=== PATIENT | female | born 1990 | race Caucasian/White ===

== ENCOUNTER 2017-10-08 09:21 | Emergency (ER) | payer MEDICAID, OTHER ==
[~2017-10-08] VITALS: Ht 175.3 cm; Wt 86.2 kg
[2017-10-08 14:00] VITALS: BP 137/83
== END 2017-10-08 14:12 | disposition home or self-care (01) ==
LOC: ER 09:21 → EDBD 09:21 → ER 14:12
DX: O9A.212 Injury, poisoning and certain other consequences of external causes complicating pregnancy, second trimester (principal); S09.90XA Unspecified injury of head, initial encounter; O99.332 Smoking (tobacco) complicating pregnancy, second trimester; F17.210 Nicotine dependence, cigarettes, uncomplicated; Z3A.19 19 weeks gestation of pregnancy; W19.XXXA Unspecified fall, initial encounter; Y93.89 Activity, other specified; Y92.89 Other specified places as the place of occurrence of the external cause; Y99.8 Other external cause status
CPT/HCPCS: 36415; 76805; 76830; 84702

== ENCOUNTER 2017-11-01 11:23 | Inpatient (IN) | payer MEDICAID ==
[~2017-11-01] VITALS: Ht 175.3 cm; Wt 85.5 kg
[2017-11-01] MEDS ORDERED: LACT. RINGERS/OXYTOCIN 20UNITS 500 ML IV ONE (11:55)
[2017-11-01] MEDS ORDERED: METHYLERGONOVINE MALEATE 0.2 MG/ML AMP IM ONE (12:00)
[2017-11-01] MEDS ORDERED: ACETAMINOPHEN 325 MG TAB PO PRN (12:00)
[2017-11-01] MEDS ORDERED: CARBOPROST TROMETHAMINE 250 MCG/1ML VIAL IM PRN (12:00)
[2017-11-01 12:04] LABS: Urine WBC None Seen /hpf (0 - 5)
[2017-11-01 12:27] LABS: Basophils # (auto) 0 uL; Basophils % (auto) 0.3 % (0.0-2.0); Eosinophils # (auto) 0 uL; Eosinophils % (auto) 0.3 % (0.0-7.0); Hematocrit 35.2 % (36.0-46.0); Hemoglobin 12.2 g/dL (12.2-16.2); Lymphocytes # (auto) 1.4 uL; Lymphocytes % (auto) 10.7 % (10.0-50.0); Mean Corpuscular Hemoglobin 33.9 pg (28.0-32.0); Mean Corpuscular Hgb Conc. 34.5 g/dL (32.0-36.0); Mean Corpuscular Volume 98.3 fL (80.0-100.0); Monocytes # (auto) 0.9 uL; Monocytes % (auto) 6.7 % (0.0-12.0); Neutrophils # (auto) 10.4 uL; Nucleated Red Blood Cells % 0.1 %; Platelet Count (auto) 208 10^3/uL (140-450); Red Blood Cells 3.58 10^6/uL (4.0-5.20); Red Cell Distribution Width 12.8 % (11.8-14.3); White Blood Cell 12.7 10^3/uL (4.4-10.8)
[2017-11-01 12:33] LABS: Amphetamine Screen, Urine NEGATIVE (NEGATIVE); Barbiturate Scree,Urine NEGATIVE (NEGATIVE); Benzodiazephine Screen, Urine NEGATIVE (NEGATIVE); Cannabinoid Screen, Urine POSITIVE (NEGATIVE); Cocaine Screen, Urine NEGATIVE (NEGATIVE); Opiate Scree,Urine NEGATIVE (NEGATIVE); Phencyclidine Screen, Urine NEGATIVE (NEGATIVE)
[2017-11-01 12:38] LABS: Urine Bacteria NONE SEEN /hpf (None Seen); Urine Blood 1+ /uL (Negative); Urine Mucus FEW (None Seen); Urine Specific Gravity 1.021 (1.001-1.035)
[2017-11-01 12:41] LABS: INR 0.99 (0.9-1.15); Partial Thromboplastin Time 28.6 sec (22.64-33.71); Prothrombin Time 10.8 sec (9.37-12.3)
[2017-11-01 12:49] LABS: BUN/Creatinine Ratio 14.9; Potassium 3.7 mmol/L (3.5-5.1)
[2017-11-01] MEDS: IBUPROFEN 600 MG TAB PO PRN ×2 (12:51→19:06)
[2017-11-01 12:52] LABS: Bilirubin, Total 0.4 mg/dL (0.2-1.0); Total Protein 6.6 g/dL (6.4-8.2)
[2017-11-01] MEDS: HYDROcodone-ACET 5/325MG TAB PO PRN ×3 (15:04→21:04)
[2017-11-01 15:52] VITALS: BP 135/84
[2017-11-01 16:07] VITALS: BP 135/85
[2017-11-01 19:00] VITALS: BP 119/81
[2017-11-01 21:00] VITALS: BP 138/85
[2017-11-01] MEDS ORDERED: FOLI1TAB6 PO (21:24)
[2017-11-01] MEDS ORDERED: LEVE500T22 PO (21:24)
[2017-11-01] MEDS ORDERED: PYRI1TAB10 PO (21:24)
[2017-11-01] MEDS ORDERED: TERB250T37 PO (21:24)
[2017-11-01] MEDS ORDERED: PRENCAP11 PO (21:24)
[2017-11-01 22:01] VITALS: BP 138/85
[2017-11-01 22:42] VITALS: BP 138/85
[2017-11-01] MEDS ORDERED: LEVETIRACETAM 500 MG TAB PO ONE (23:00)
[2017-11-02] MEDS: HYDROcodone-ACET 5/325MG TAB PO PRN ×3 (02:56→15:26)
[2017-11-02 05:18] VITALS: BP 106/69
[2017-11-02 08:20] VITALS: BP 122/72
[2017-11-02] MEDS ORDERED: SODIUM CHLORIDE 0.9% 1,000 ML IV SCH (09:00)
[2017-11-02] MEDS ORDERED: ceFAZolin 1GM/50ML 50 ML IV SCH (09:00)
[2017-11-02] MEDS ORDERED: LEVETIRACETAM 500 MG TAB PO SCH (10:00)
[2017-11-02 10:16] LABS: Basophils # (auto) 0 uL; Basophils % (auto) 0.2 % (0.0-2.0); Eosinophils # (auto) 0.1 uL; Eosinophils % (auto) 0.7 % (0.0-7.0); Hematocrit 34.4 % (36.0-46.0); Hemoglobin 11.9 g/dL (12.2-16.2); Lymphocytes # (auto) 1.3 uL; Mean Corpuscular Hemoglobin 34.2 pg (28.0-32.0); Mean Corpuscular Hgb Conc. 34.6 g/dL (32.0-36.0); Mean Corpuscular Volume 98.7 fL (80.0-100.0); Monocytes # (auto) 0.6 uL; Monocytes % (auto) 5.7 % (0.0-12.0); Neutrophils % (auto) 80.4 % (37.0-80.0); Platelet Count (auto) 173 10^3/uL (140-450); Red Blood Cells 3.49 10^6/uL (4.0-5.20)
[2017-11-02 12:44] VITALS: BP 112/70
[2017-11-02 14:34] LABS: Urine Bacteria FEW /hpf (None Seen); Urine Blood 3+ /uL (Negative); Urine Specific Gravity 1.005 (1.001-1.035); Urine WBC 58 /hpf (0 - 5)
[2017-11-02 15:00] VITALS: BP 112/70
[2017-11-02 17:00] VITALS: BP 132/83
[2017-11-05 03:07] LABS: RPR Non Reactive (Non Reactive)
[2017-11-05 10:08] LABS: Rubella Antibodies, IgG 4.67 index (Immune >0.99)
== END 2017-11-02 16:30 | disposition home or self-care (01) | DRG 560 ==
LOC: LDRP 11:23 → OBSVTOIN 11:23 → UNDOADMOB 11:25 → LDRP 11:25 → WEST WING 20:05
PROVIDERS: ADMIT Obstetrics & Gynecology; ATTEND Obstetrics & Gynecology
PROC: 10E0XZZ Delivery of Products of Conception, External Approach (ICD-10-PCS; principal; 2017-11-01)
DX: O62.3 Precipitate labor (principal); O60.12X0 Preterm labor second trimester with preterm delivery second trimester, not applicable or unspecified; O36.4XX0 Maternal care for intrauterine death, not applicable or unspecified; Z3A.23 23 weeks gestation of pregnancy; Z86.73 Personal history of transient ischemic attack (TIA), and cerebral infarction without residual deficits; O42.912 Preterm premature rupture of membranes, unspecified as to length of time between rupture and onset of labor, second trimester; O99.334 Smoking (tobacco) complicating childbirth; F17.210 Nicotine dependence, cigarettes, uncomplicated; Z37.1 Single stillbirth; O99.354 Diseases of the nervous system complicating childbirth
CPT/HCPCS: 36415; 59414; 74018; 76856; 80053; 80307; 81001; 85025; 85610; 85730; 86592; 86703; 86762; 86850; 86900; 86901; 87340; 96365; G0378; J0690

== ENCOUNTER 2018-11-27 01:37 | Emergency (ER) | payer MEDICAID ==
[~2018-11-27] VITALS: Ht 175.3 cm; Wt 72.6 kg
[~2018-11-27 01:37] MED LIST: FOLI1TAB6 PO; LEVE500T22 PO; PRENCAP11 PO; PYRI1TAB10 PO; TERB250T37 PO
[2018-11-27 03:04] LABS: Basophils # (auto) 0 uL; Basophils % (auto) 0.4 % (0.0-2.0); Eosinophils # (auto) 0.1 uL; Eosinophils % (auto) 0.7 % (0.0-7.0); Hematocrit 48.4 % (36.0-46.0); Lymphocytes # (auto) 1.9 uL; Lymphocytes % (auto) 17.3 % (10.0-50.0); Mean Corpuscular Hgb Conc. 35.2 g/dL (32.0-36.0); Mean Corpuscular Volume 96.6 fL (80.0-100.0); Monocytes # (auto) 0.9 uL; Monocytes % (auto) 8.1 % (0.0-12.0); Neutrophils # (auto) 7.9 uL; Neutrophils % (auto) 73.5 % (37.0-80.0); Nucleated Red Blood Cells % 0.1 %; Platelet Count (auto) 259 10^3/uL (140-450); Red Blood Cells 5.01 10^6/uL (4.0-5.20); Red Cell Distribution Width 13.5 % (11.8-14.3); White Blood Cell 10.8 10^3/uL (4.4-10.8)
[2018-11-27 03:20] LABS: Albumin 3.9 g/dL (3.4-5.0); BUN/Creatinine Ratio 11.7; Calcium 9.2 mg/dL (8.5-10.1); Salicylate 2.3 mg/dL (2.8-20.0)
[2018-11-27 03:29] LABS: Bilirubin, Total 1.3 mg/dL (0.2-1.0); Total Protein 7.6 g/dL (6.4-8.2)
[2018-11-27] MEDS ORDERED: POTASSIUM CHLORIDE 8 MEQ TAB PO ONE ×2 (03:30→04:00)
[2018-11-27 03:42] LABS: Acetaminophen < 2.0 ug/mL (10-30)
[2018-11-27 05:51] LABS: Amphetamine Screen, Urine POSITIVE (NEGATIVE); Barbiturate Scree,Urine NEGATIVE (NEGATIVE); Benzodiazephine Screen, Urine NEGATIVE (NEGATIVE); Cannabinoid Screen, Urine POSITIVE (NEGATIVE); Cocaine Screen, Urine NEGATIVE (NEGATIVE); Opiate Scree,Urine NEGATIVE (NEGATIVE); Phencyclidine Screen, Urine NEGATIVE (NEGATIVE)
[2018-11-27 06:08] LABS: Urine Amorphous Crystal FEW /hpf (None Seen); Urine Bacteria FEW /hpf (None Seen); Urine Blood Negative /uL (Negative); Urine Hyaline Cast FEW /lpf (0 - 2); Urine Mucus FEW (None Seen); Urine Specific Gravity 1.027 (1.001-1.035); Urine WBC 11 /hpf (0 - 5)
[2018-11-27] MEDS ORDERED: clonazePAM 0.5 MG TAB PO SCH (22:00)
[2018-11-27] MEDS ORDERED: OLANZapine 5 MG TAB PO SCH (22:00)
[2018-11-28] MEDS ORDERED: POTASSIUM EFFERVESENT TAB 25 MEQ PO ONE (09:00)
[2018-11-28] MEDS ORDERED: NITROFURANTOIN (MONO) 100 mg CAP PO ONE (09:00)
[2018-11-28 14:33] VITALS: BP 101/61
== END 2018-11-28 15:20 | disposition short-term general hospital (02) ==
LOC: EDBD 01:37 → ER 01:50
DX: F41.9 Anxiety disorder, unspecified (principal); F32.9 Major depressive disorder, single episode, unspecified; R45.851 Suicidal ideations; F17.210 Nicotine dependence, cigarettes, uncomplicated; F12.10 Cannabis abuse, uncomplicated; F15.10 Other stimulant abuse, uncomplicated
CPT/HCPCS: 36415; 80053; 80307; 80329; 81001; 85025; 93005; 94761

== ENCOUNTER 2020-11-26 15:12 | Inpatient (IN) | payer MEDICAID ==
[~2020-11-26] VITALS: Ht 175.3 cm; Wt 95.7 kg
[~2020-11-26 15:12] MED LIST changes: -LEVE500T22 PO; +LEVE500T32 PO; +TERB250T28 PO; -TERB250T37 PO
[2020-11-26 16:15] LABS: Urine Bacteria NONE SEEN /hpf (None Seen); Urine Blood Negative /uL (Negative); Urine Hyaline Cast MANY /lpf (0 - 2); Urine Mucus FEW (None Seen); Urine Specific Gravity 1.026 (1.001-1.035); Urine WBC 7 /hpf (0 - 5)
[2020-11-26 16:26] LABS: Amphetamine Screen, Urine POSITIVE (NEGATIVE); Barbiturate Scree,Urine NEGATIVE (NEGATIVE); Benzodiazephine Screen, Urine NEGATIVE (NEGATIVE); Cannabinoid Screen, Urine POSITIVE (NEGATIVE); Cocaine Screen, Urine NEGATIVE (NEGATIVE); Phencyclidine Screen, Urine NEGATIVE (NEGATIVE)
[2020-11-26 16:33] LABS: Opiate Scree,Urine NEGATIVE (NEGATIVE)
[2020-11-26 16:33] LABS: Eosinophils # (auto) 0 10 ^3/uL (0-0.8); Hemoglobin 13.5 g/dL (12.2-16.2); Lymphocytes # (auto) 1.2 10 ^3/uL (0.4-5.4); Nucleated Red Blood Cells % 0.1 %; Red Blood Cells 3.63 10^6/uL (4.0-5.20)
[2020-11-26 16:35] LABS: Basophils # (auto) 0 10 ^3/uL (0-0.2); Basophils % (auto) 0.6 % (0.0-2.0); Eosinophils % (auto) 0.1 % (0.0-7.0); Hematocrit 38.4 % (36.0-46.0); Lymphocytes % (auto) 15.9 % (10.0-50.0); Mean Corpuscular Hemoglobin 37.2 pg (28.0-32.0); Mean Corpuscular Hgb Conc. 35.2 g/dL (32.0-36.0); Mean Corpuscular Volume 105.8 fL (80.0-100.0); Monocytes % (auto) 14.3 % (0.0-12.0); Neutrophils # (auto) 5.1 10 ^3/uL (1.6-8.6); Neutrophils % (auto) 69.1 % (37.0-80.0); Platelet Count (auto) 141 10^3/uL (140-450); Red Cell Distribution Width 17.8 % (11.8-14.3); White Blood Cell 7.3 10^3/uL (4.4-10.8)
[2020-11-26 16:51] LABS: Albumin 4.4 g/dL (3.4-5.0); Anion Gap 12 (5-15); Blood Alcohol < 3.0 mg/dL (0-5); Calcium 9.8 mg/dL (8.5-10.1); Carbon Dioxide 29 mmol/L (21-32); Chloride 96 mmol/L (98-107); GFR African American 45 mL/min; GFR Non-African American 37 mL/min; Glucose 90 mg/dL (74-106); Magnesium 1.3 mg/dL (1.6-2.6); Potassium 3.1 mmol/L (3.5-5.1); Sodium 137 mmol/L (136-145)
[2020-11-26 17:01] LABS: Acetaminophen < 2.0 ug/mL (10-30); Salicylate < 1.7 mg/dL (2.8-20.0)
[2020-11-26 17:14] LABS: Alanine Aminotransferase 69 U/L (13-56); Alkaline Phosphatase 120 U/L (45-117); Aspartate Aminotransferase 114 U/L (15-37); BUN/Creatinine Ratio 8.2; Bilirubin, Total 2.1 mg/dL (0.2-1.0); Blood Urea Nitrogen 14 mg/dL (7-18); Total Protein 8.1 g/dL (6.4-8.2)
[2020-11-26] MEDS ORDERED: THIAMINE HCL 100 MG TAB PO ONE (17:15)
[2020-11-26] MEDS ORDERED: POTASSIUM CHL 20 Meq TABLET PO ONE (17:15)
[2020-11-26] MEDS ORDERED: LORazepam 2MG/ML-1ML VIAL IV ONE ×2 (17:30→21:15)
[2020-11-26] MEDS ORDERED: SODIUM CHLORIDE 0.9% 1,000 ML IV ONE (17:30)
[2020-11-26] MEDS ORDERED: levETIRAcetam 500 MG TAB PO ONE (18:00)
[2020-11-26] MEDS: MAGNESIUM SULFATE 1GM/100ML 100 ML IV SCH ×2 (18:10→19:55)
[2020-11-26] MEDS ORDERED: diphenhdrAMINE HCL 50 MG/1 ML VL IV ONE ×2 (20:45→21:15)
[2020-11-26] MEDS ORDERED: HALOPERIDOL LACTATE 5 MG/ML INJ VIAL IM ONE (21:30)
[2020-11-27] MEDS ORDERED: LORazepam 0.5 MG TAB PO PRN (11:30)
[2020-11-27] MEDS ORDERED: diphenhdrAMINE HCL 50 MG/1 ML VL IM ONE ×2 (12:30→15:45)
[2020-11-27] MEDS ORDERED: LORazepam 2MG/ML-1ML VIAL IM ONE ×2 (12:30→15:45)
[2020-11-27] MEDS ORDERED: HALOPERIDOL LACTATE 5 MG/ML INJ VIAL IM ONE (15:45)
[2020-11-27] MEDS ORDERED: THIAMINE HCL 100 MG TAB PO ONE (16:00)
[2020-11-27] MEDS: HALOPERIDOL LACTATE 5 MG/ML INJ VIAL IM ONE ×2 (16:11→16:41)
[2020-11-27] MEDS ORDERED: FOLIC ACID 1 MG, MULTIPLE VITAMIN 10 ML, MAGNESIUM SULF SDV 50% 8 MEQ, THIAMINE INJ 100... INJ SCH ×5 (17:08)
[2020-11-27] MEDS ORDERED: LORazepam 2MG/ML-1ML VIAL IV ONE (17:15)
[2020-11-27] MEDS ORDERED: SODIUM CHLORIDE 0.9% 1,000 ML IV ONE ×2 (17:15→17:45)
[2020-11-27] MEDS ORDERED: OLANZapine 5 MG TAB PO ONE (18:15)
[2020-11-27] MEDS ORDERED: LORazepam MDV 2MG/ML 50 MG in SODIUM CHL 0.9% 25 ML IV SCH (19:30)
[2020-11-27] MEDS ORDERED: FOLIC ACID 1 MG in D5W 5% 50 ML INJ SCH (19:45)
[2020-11-27] MEDS ORDERED: THIAMINE 100mg/ml INJ (200mg/2ml VIAL) IV ONE (19:45)
[2020-11-27] MEDS ORDERED: D5W/SOD CHLO 0.9% 1,000 ML IV SCH (19:45)
[2020-11-28] VITALS (56 sets, daily range): BP systolic 105–144; BP diastolic 46–99
[2020-11-28] MEDS ORDERED: LORazepam 2MG/ML-1ML VIAL ONE (03:19)
[2020-11-28] MEDS ORDERED: LORazepam MDV 2MG/ML 10 ML IV ONE (03:20)
[2020-11-28 06:35] LABS: Basophils # (auto) 0 10 ^3/uL (0-0.2); Basophils % (auto) 0.8 % (0.0-2.0); Eosinophils # (auto) 0.1 10 ^3/uL (0-0.8); Hematocrit 31.9 % (36.0-46.0); Hemoglobin 11.2 g/dL (12.2-16.2); Lymphocytes # (auto) 1.1 10 ^3/uL (0.4-5.4); Monocytes # (auto) 0.4 10 ^3/uL (0-1.3); Neutrophils # (auto) 1.4 10 ^3/uL (1.6-8.6)
[2020-11-28 06:37] LABS: Lymphocytes % (auto) 36.5 % (10.0-50.0); Mean Corpuscular Hemoglobin 37.8 pg (28.0-32.0); Mean Corpuscular Hgb Conc. 35.1 g/dL (32.0-36.0); Mean Corpuscular Volume 107.4 fL (80.0-100.0); Monocytes % (auto) 12.3 % (0.0-12.0); Neutrophils % (auto) 46.4 % (37.0-80.0); Nucleated Red Blood Cells % 0.1 %; Platelet Count (auto) 101 10^3/uL (140-450); Red Blood Cells 2.97 10^6/uL (4.0-5.20); Red Cell Distribution Width 17.8 % (11.8-14.3)
[2020-11-28 06:44] LABS: Urine Bacteria FEW /hpf (None Seen); Urine Blood Negative /uL (Negative); Urine Mucus FEW (None Seen); Urine Specific Gravity 1.031 (1.001-1.035); Urine WBC 32 /hpf (0 - 5)
[2020-11-28 07:01] LABS: Amphetamine Screen, Urine POSITIVE (NEGATIVE); Barbiturate Scree,Urine NEGATIVE (NEGATIVE); Benzodiazephine Screen, Urine NEGATIVE (NEGATIVE); Cannabinoid Screen, Urine POSITIVE (NEGATIVE); Cocaine Screen, Urine NEGATIVE (NEGATIVE)
[2020-11-28 07:01] LABS: Albumin 2.9 g/dL (3.4-5.0); Anion Gap 6 (5-15); Calcium 8.2 mg/dL (8.5-10.1); Carbon Dioxide 27 mmol/L (21-32); Chloride 108 mmol/L (98-107); Sodium 141 mmol/L (136-145)
[2020-11-28 07:07] LABS: Alanine Aminotransferase 65 U/L (13-56); Alkaline Phosphatase 85 U/L (45-117); Aspartate Aminotransferase 169 U/L (15-37); BUN/Creatinine Ratio 17.6; Blood Alcohol < 3.0 mg/dL (0-5); Blood Urea Nitrogen 9 mg/dL (7-18); GFR African American 180 mL/min; GFR Non-African American 149 mL/min; Glucose 78 mg/dL (74-106); Magnesium 2.5 mg/dL (1.6-2.6); Total Protein 5.9 g/dL (6.4-8.2)
[2020-11-28 07:10] LABS: Opiate Scree,Urine NEGATIVE (NEGATIVE); Phencyclidine Screen, Urine NEGATIVE (NEGATIVE)
[2020-11-28 07:13] LABS: Potassium 2.9 mmol/L (3.5-5.1)
[2020-11-28] MEDS ORDERED: LORazepam 0.5 MG TAB PO PRN (09:15)
[2020-11-28] MEDS ORDERED: MIDAZOLAM HCL 5 MG/ML-1ML VIAL ONE (09:29)
[2020-11-28] MEDS ORDERED: ROCURONIUM 10MG/ML 10ML VIAL IV ONE (09:30)
[2020-11-28] MEDS ORDERED: ETOMIDATE (2MG/ML) 20ML VIAL IV ONE (09:30)
[2020-11-28] MEDS ORDERED: SUCCINYLCHOLINE CHLORIDE 20 MG/ML 10ML VIAL IV ONE (09:30)
[2020-11-28] MEDS ORDERED: MIDAZOLAM DRIP 50 mg/50mL 0 ML IV ONE (09:42)
[2020-11-28] MEDS ORDERED: PROPOFOL 100 ML IV ONE (09:43)
[2020-11-28] MEDS ORDERED: fentaNYL Drip 2500mCg/250mlNS 250 ML IV ONE (09:43)
[2020-11-28] MEDS: PROPOFOL 100 ML IV SCH ×5 (10:00→20:59)
[2020-11-28] MEDS: POTASSIUM CHL 20MEQ/100ML 100 ML IV SCH ×3 (10:00→15:00)
[2020-11-28] MEDS ORDERED: THIAMINE 100mg/ml INJ (200mg/2ml VIAL) IV SCH (10:00)
[2020-11-28] MEDS: POTASSIUM CHL 20 Meq TABLET PO SCH (11:51)
[2020-11-28] MEDS ORDERED: FOLIC ACID 1 MG, MULTIPLE VITAMIN 10 ML, MAGNESIUM SULF SDV 50% 8 MEQ, THIAMINE INJ 100... INJ SCH ×5 (12:00)
[2020-11-28] MEDS: fentaNYL Drip 2500mCg/250mlNS 250 ML IV SCH ×3 (12:00→15:19)
[2020-11-28] MEDS: FOLIC ACID 1 MG, MULTIPLE VITAMIN 10 ML, MAGNESIUM SULF SDV 50% 8 MEQ, THIAMINE INJ 100... INJ SCH ×5 (12:06)
[2020-11-28] MEDS: MIDAZOLAM DRIP 50 mg/50mL 50 ML IV SCH (15:07)
[2020-11-28] MEDS: SODIUM CHLORIDE 0.9% 1,000 ML IV SCH (15:20)
[2020-11-29] VITALS (43 sets, daily range): BP systolic 92–140; BP diastolic 37–87
[2020-11-29] MEDS: SODIUM CHLORIDE 0.9% 1,000 ML IV SCH ×2 (00:48→08:24)
[2020-11-29] MEDS: POTASSIUM CHL 20MEQ/100ML 100 ML IV SCH ×3 (01:40→04:17)
[2020-11-29 04:37] LABS: Basophils # (auto) 0 10 ^3/uL (0-0.2); Basophils % (auto) 0.6 % (0.0-2.0); Eosinophils # (auto) 0.2 10 ^3/uL (0-0.8); Eosinophils % (auto) 4.3 % (0.0-7.0); Hematocrit 32.7 % (36.0-46.0); Hemoglobin 11.2 g/dL (12.2-16.2); Lymphocytes # (auto) 0.7 10 ^3/uL (0.4-5.4); Lymphocytes % (auto) 18.7 % (10.0-50.0); Mean Corpuscular Hemoglobin 37.3 pg (28.0-32.0); Mean Corpuscular Hgb Conc. 34.4 g/dL (32.0-36.0); Mean Corpuscular Volume 108.4 fL (80.0-100.0); Monocytes # (auto) 0.5 10 ^3/uL (0-1.3); Monocytes % (auto) 12.6 % (0.0-12.0); Neutrophils # (auto) 2.4 10 ^3/uL (1.6-8.6); Neutrophils % (auto) 63.8 % (37.0-80.0); Nucleated Red Blood Cells % 0.1 %; Platelet Count (auto) 121 10^3/uL (140-450); Red Blood Cells 3.01 10^6/uL (4.0-5.20); Red Cell Distribution Width 18.2 % (11.8-14.3); White Blood Cell 3.7 10^3/uL (4.4-10.8)
[2020-11-29 04:56] LABS: Albumin 2.9 g/dL (3.4-5.0); Calcium 8.2 mg/dL (8.5-10.1); Potassium 4.1 mmol/L (3.5-5.1)
[2020-11-29 05:01] LABS: BUN/Creatinine Ratio 10.3; Bilirubin, Total 0.9 mg/dL (0.2-1.0); Total Protein 5.8 g/dL (6.4-8.2)
[2020-11-29] MEDS: THIAMINE HCL 100 MG TAB PO SCH (10:00)
[2020-11-29] MEDS: levETIRAcetam 500 MG TAB PO SCH ×2 (10:00→22:00)
[2020-11-29] MEDS: POTASSIUM CHL 20 Meq TABLET PO SCH (10:00)
[2020-11-29] MEDS: FOLIC ACID 1 MG TAB PO SCH (10:00)
[2020-11-29] MEDS: FOLIC ACID 1 MG, MULTIPLE VITAMIN 10 ML, MAGNESIUM SULF SDV 50% 8 MEQ, THIAMINE INJ 100... INJ SCH ×5 (11:53)
[2020-11-29] MEDS: MIDAZOLAM DRIP 50 mg/50mL 50 ML IV SCH ×2 (11:57→20:53)
[2020-11-29] MEDS ORDERED: HALOPERIDOL LACTATE 5 MG/ML INJ VIAL IM PRN ×2 (18:45→19:45)
[2020-11-29] MEDS ORDERED: LORazepam 0.5 MG TAB PO PRN (19:15)
[2020-11-29] MEDS: GABAPENTIN 300 MG CAP PO SCH (20:00)
[2020-11-30] MEDS: SODIUM CHLORIDE 0.9% 1,000 ML IV SCH (04:00)
[2020-11-30 05:00] VITALS: BP 118/71
[2020-11-30 06:21] LABS: Potassium 3.7 mmol/L (3.5-5.1)
[2020-11-30 06:22] LABS: Basophils # (auto) 0 10 ^3/uL (0-0.2); Basophils % (auto) 0.7 % (0.0-2.0); Eosinophils # (auto) 0.1 10 ^3/uL (0-0.8); Eosinophils % (auto) 2.1 % (0.0-7.0); Hematocrit 32.2 % (36.0-46.0); Hemoglobin 11.1 g/dL (12.2-16.2); Lymphocytes # (auto) 1.2 10 ^3/uL (0.4-5.4); Lymphocytes % (auto) 27.8 % (10.0-50.0); Mean Corpuscular Hemoglobin 36.9 pg (28.0-32.0); Mean Corpuscular Hgb Conc. 34.5 g/dL (32.0-36.0); Mean Corpuscular Volume 106.9 fL (80.0-100.0); Monocytes # (auto) 0.7 10 ^3/uL (0-1.3); Neutrophils # (auto) 2.3 10 ^3/uL (1.6-8.6); Neutrophils % (auto) 52.4 % (37.0-80.0); Nucleated Red Blood Cells % 0.1 %; Platelet Count (auto) 135 10^3/uL (140-450); Red Blood Cells 3.02 10^6/uL (4.0-5.20); Red Cell Distribution Width 18.1 % (11.8-14.3); White Blood Cell 4.4 10^3/uL (4.4-10.8)
[2020-11-30 06:29] LABS: Albumin 2.9 g/dL (3.4-5.0); BUN/Creatinine Ratio 10.8; Bilirubin, Total 1.2 mg/dL (0.2-1.0); Calcium 8.7 mg/dL (8.5-10.1); Total Protein 5.8 g/dL (6.4-8.2)
[2020-11-30 09:00] VITALS: BP 117/76
[2020-11-30] MEDS: levETIRAcetam 500 MG TAB PO SCH (10:06)
[2020-11-30] MEDS: FOLIC ACID 1 MG TAB PO SCH (10:06)
[2020-11-30] MEDS: POTASSIUM CHL 20 Meq TABLET PO SCH (10:07)
[2020-11-30] MEDS: THIAMINE HCL 100 MG TAB PO SCH (10:08)
[2020-11-30] MEDS ORDERED: THIA100T10 PO (10:26)
[2020-11-30] MEDS ORDERED: LEVE500T32 PO (10:26)
[2020-11-30] MEDS ORDERED: GABA300C10 PO (10:26)
[2020-11-30] MEDS ORDERED: FOLI1TAB6 PO (10:26)
[2020-11-30] MEDS: PROPOFOL 100 ML IV SCH (12:00)
[2020-11-30 13:00] VITALS: BP 112/72
[2020-11-30] MEDS: GABAPENTIN 300 MG CAP PO SCH ×2 (13:40→14:00)
[2020-11-30 14:21] VITALS: BP 112/72
== END 2020-11-30 17:12 | disposition home or self-care (01) | DRG 59 ==
LOC: EDUNIT# 15:12 → EDBD 15:12 → ER 15:12 → TELE 11-27 19:43 → ICU WEST 11-28 09:40 → CENTRAL 11-29 19:55 → TELE-CENTR 11-29 21:21
PROVIDERS: ADMIT Hospitalist; ATTEND Hospitalist
PROC: 02H633Z Insertion of Infusion Device into Right Atrium, Percutaneous Approach (ICD-10-PCS; principal; 2020-11-28)
PROC: B548ZZA Ultrasonography of Superior Vena Cava, Guidance (ICD-10-PCS; 2020-11-28)
PROC: 0BH17EZ Insertion of Endotracheal Airway into Trachea, Via Natural or Artificial Opening (ICD-10-PCS; 2020-11-28)
PROC: 5A1935Z Respiratory Ventilation, Less than 24 Consecutive Hours (ICD-10-PCS; 2020-11-28)
DX: G93.1 Anoxic brain damage, not elsewhere classified (principal); J96.01 Acute respiratory failure with hypoxia; N17.9 Acute kidney failure, unspecified; G40.909 Epilepsy, unspecified, not intractable, without status epilepticus; F10.231 Alcohol dependence with withdrawal delirium; F32.9 Major depressive disorder, single episode, unspecified; F19.20 Other psychoactive substance dependence, uncomplicated; D53.9 Nutritional anemia, unspecified; E11.9 Type 2 diabetes mellitus without complications; J98.11 Atelectasis; G43.909 Migraine, unspecified, not intractable, without status migrainosus; E78.5 Hyperlipidemia, unspecified; Y90.0 Blood alcohol level of less than 20 mg/100 ml; F17.210 Nicotine dependence, cigarettes, uncomplicated; F20.9 Schizophrenia, unspecified; F41.9 Anxiety disorder, unspecified; I10 Essential (primary) hypertension; R45.851 Suicidal ideations; Z59.0 Homelessness; Z79.899 Other long term (current) drug therapy; Z82.3 Family history of stroke; Z82.49 Family history of ischemic heart disease and other diseases of the circulatory system; Z83.3 Family history of diabetes mellitus; Z86.73 Personal history of transient ischemic attack (TIA), and cerebral infarction without residual deficits; Z87.11 Personal history of peptic ulcer disease; Z91.5 Personal history of self-harm; Z78.1 Physical restraint status; E87.6 Hypokalemia; F15.221 Other stimulant dependence with intoxication delirium; F12.90 Cannabis use, unspecified, uncomplicated
CPT/HCPCS: 36415; 36600; 70450; 71045; 80053; 80307; 80320; 80329; 81001; 81025; 82140; 82550; 82805; 82962; 83735; 84132; 84702; 85025; 87070; 87077; 87081; 87186; 87205; 87426; 92610; 93005; 94002; 94003; 95819; 96361; 96365; 96366; 96372; 96375; 96376; 99291; A4565; G0378; J0330; J2250; J2704; J3480; J7042; J7060

== ENCOUNTER 2022-12-11 16:15 | Emergency (ER) | payer MEDICAID ==
[~2022-12-11] VITALS: Ht 175.3 cm; Wt 79.5 kg
[~2022-12-11 16:15] MED LIST changes: +GABA300C10 PO; -PYRI1TAB10 PO; +THIA100T10 PO
[2022-12-11 16:58] VITALS: BP 117/66
[2022-12-11 17:34] LABS: Basophils # (auto) 0.1 10 ^3/uL (0-0.2); Basophils % (auto) 1.1 % (0.0-2.0); Eosinophils # (auto) 0 10 ^3/uL (0-0.8); Eosinophils % (auto) 0.5 % (0.0-7.0); Hematocrit 48.6 % (36.0-46.0); Hemoglobin 16.3 g/dL (12.2-16.2); Lymphocytes # (auto) 2.6 10 ^3/uL (0.4-5.4); Lymphocytes % (auto) 45.9 % (10.0-50.0); Mean Corpuscular Hemoglobin 32.3 pg (28.0-32.0); Mean Corpuscular Hgb Conc. 33.5 g/dL (32.0-36.0); Mean Corpuscular Volume 96.3 fL (80.0-100.0); Monocytes # (auto) 0.4 10 ^3/uL (0-1.3); Neutrophils # (auto) 2.6 10 ^3/uL (1.6-8.6); Neutrophils % (auto) 45.5 % (37.0-80.0); Nucleated Red Blood Cells % 0.1 %; Red Blood Cells 5.04 10^6/uL (4.0-5.20); Red Cell Distribution Width 15.5 % (11.8-14.3); White Blood Cell 5.7 10^3/uL (4.4-10.8)
[2022-12-11 17:52] LABS: Albumin 3.9 g/dL (3.4-5.0); Calcium 8.9 mg/dL (8.5-10.1); Magnesium 2.4 mg/dL (1.6-2.6); Potassium 3.9 mmol/L (3.5-5.1)
[2022-12-11 18:29] LABS: Bilirubin, Total 0.4 mg/dL (0.2-1.0); Total Protein 7.7 g/dL (6.4-8.2)
[2022-12-11 18:35] LABS: Blood Alcohol 405.2 mg/dL (0-5)
[2022-12-11 18:38] LABS: BUN/Creatinine Ratio 8.3 (10.0-20.0)
== END 2022-12-11 18:00 | disposition left against medical advice (07) ==
LOC: ER 16:15 → EDBD 16:15 → ER 18:00
DX: R55 Syncope and collapse (principal); F41.9 Anxiety disorder, unspecified; F32.9 Major depressive disorder, single episode, unspecified; F17.210 Nicotine dependence, cigarettes, uncomplicated; F12.10 Cannabis abuse, uncomplicated; F15.10 Other stimulant abuse, uncomplicated; F10.20 Alcohol dependence, uncomplicated; Y90.8 Blood alcohol level of 240 mg/100 ml or more
CPT/HCPCS: 36415; 80053; 80320; 83735; 85025

== ENCOUNTER 2023-11-03 08:16 | Emergency (ER) | payer MEDICAID, OTHER ==
[~2023-11-03] VITALS: Ht 172.7 cm; Wt 80.0 kg
[2023-11-03 08:16] VITALS: BP 0/0; PULSE 0
[~2023-11-03 08:16] MED LIST changes: +FOLI-119 PO; -FOLI1TAB6 PO; +GABA-1250 PO; -GABA300C10 PO; -LEVE500T32 PO; +LEVE500T40 PO
[2023-11-03] MEDS ORDERED: SODIUM BICARB 8.4% 50Meq/50ml SYR Vial IV ONE (08:17)
[2023-11-03] MEDS ORDERED: EPINEPHrine HCL 1 MG/10 ML SYRG IV ONE (08:17)
[2023-11-03 08:20] VITALS: RESP 16; O2SAT 100
== END 2023-11-03 13:20 ==
LOC: EDBD 08:16 → EDUNIT# 08:16 → ER 08:16
DX: I46.9 Cardiac arrest, cause unspecified (principal)
CPT/HCPCS: 31500; 92950; 99285; J0171